=== PATIENT | male | born 1955 | race Caucasian/White ===

== ENCOUNTER 2022-06-26 09:03 | Emergency (ER) | payer MEDICARE, SELFPAY ==
[2022-06-26] VITALS (36 sets, daily range): BP systolic 95–157; BP diastolic 58–82; PULSE 90–103; RESP 16–18; TEMP 36.3–36.7; O2SAT 90–98
--- NOTE | ~2022-06-26 | XR_ITS ---
Portable chest x-ray Comparison: None Clinical History: Weakness Findings: Calcified right basilar granuloma noted. Lungs are otherwise clear. No pleural effusion or pneumothorax. Cardiomediastinal silhouette is unremarkable. Bones and soft tissues are unremarkable . Impression: No significant abnormality seen. Reviewed, dictated and finalized at [facility]. [facility] [employer]NALS Impression: No significant abnormality seen.
--- NOTE | ~2022-06-26 | XR_ITS ---
AP views of the pelvis and proximal femora Clinical history: Multiple falls Findings: No acute fracture identified. Bilateral hip arthroplasties are present. Suspected osteolysi s in the right supra-acetabular region. SI joints are probably unremarkable. Soft tissues are unremar kable. Impression: No acute fracture evident. Bilateral hip arthroplasties, with possible relative osteolysis in the right supra-acetabular region. Reviewed, dictated and finalized at location [facility]. [facility] PROGRAM COORDINATOR Impression: No acute fracture evident. Bilateral hip arthroplasties, with possible relative osteolysis in the right helm pra-acetabular region.
--- NOTE | 2022-06-26 09:34 | ED.GENADULT ---
HPI - General Adult General Chief complaint: Weakness Stated complaint: ambulance Time Seen by Provider: 06/26/22 09:21 History of Present Illness HPI narrative: This is a 67-year-old male with a history of CVA (w/ Left sided weakness) and recent elbow fracture presenting to the ED with nausea/vomiting and frequent falls. Patient had a fall on Wednesday that resulted in a fractured elbow. This was treated @ [facility] and he was eventually discharged in a sling with orthopedic clinic follow-up. Workup included Ct head, C-spine, Wrist, elbow, and shoulder Xrs. Since then the patient has had 2 episodes of nausea/vomiting both immediately after taking Mabie and is likely a medication side effect. This morning he had another fall. He was walking with a walker back from the bathroom after vomiting and his left leg got tangled carpet, as he turned his right leg gave out and he put his arm on the wall and slid to the floor. there was no head trauma or loss of consciousness. He did not sustain any injury at that time. At this time the patient has no complaints. He says that the pain in his left elbow has been controlled with his home tramadol. His family is concerned because no lab work was ordered at the previous hospital and had like to make sure there is not a cause for the patient's frequent falls. His family believes that he has been more weak than usual. Related Data Home Medications Medication Instructions Recorded Confirmed acetaminophen 500 mg tablet 500 mg PO Q6H PRN Pain 06/26/22 06/26/22 (Acetaminophen Extra Strength) aspirin 81 mg tablet,delayed 81 mg PO DAILY 06/26/22 06/26/22 release atorvastatin 80 mg tablet 80 mg PO HS 06/26/22 06/26/22 cholecalciferol (vitamin D3) 50 50 mcg PO DAILY 06/26/22 06/26/22 mcg (2,000 unit) capsule clopidogrel 75 mg tablet 75 mg PO DAILY 06/26/22 06/26/22 famotidine 20 mg tablet 20 mg PO DAILY 06/26/22 06/26/22 fluticasone propionate 50 2 spray intranasal DAILY 06/26/22 06/26/22 mcg/actuation nasal spray,suspension furosemide 40 mg tablet 40 mg PO DAILY 06/26/22 06/26/22 glucagon 1 mg/0.2 mL subcutaneous 1 mg subcut PRN PRN Hypoglycemia 06/26/22 06/26/22 solution (Gvoke) hydralazine 25 mg tablet 25 mg PO TID 06/26/22 06/26/22 hydrocodone 5 mg-acetaminophen 325 1 tablet PO DIRECTED PRN Pain 06/26/22 06/26/22 mg tablet icosapent ethyl 1 gram capsule 2 g PO BID 06/26/22 06/26/22 (Vascepa) insulin aspart U-100 100 unit/mL See Rx Instructions .Route .COMPLEX 06/26/22 06/26/22 (3 mL) subcutaneous pen (Novolog FlexPen U-100 Insulin aspart) insulin glargine 100 unit/mL (3 45 unit subcut HS 06/26/22 06/26/22 mL) subcutaneous pen (Basaglar KwikPen U-100 Insulin) isosorbide dinitrate 5 mg tablet 5 mg PO BID 06/26/22 06/26/22 metoprolol succinate 50 mg 50 mg PO DAILY 06/26/22 06/26/22 tablet,extended release 24 hr sennosides 8.6 mg tablet (senna) 8.6 mg PO DAILY 06/26/22 06/26/22 tamsulosin 0.4 mg capsule 0.4 mg PO DAILY 06/26/22 06/26/22 tramadol 50 mg tablet 50 mg PO TID PRN Pain 06/26/22 06/26/22 Allergies Allergy/AdvReac Type Severity Reaction Status Date / Time No Known Allergies Allergy Verified 06/26/22 09:18 Review of Systems Review of Systems: CONSTITUTIONAL: Denies night sweats. EYES: No eye pain ENT: Denies rhinorrhea CARDIOVASCULAR: Denies palpitations RESPIRATORY: Denies hemoptysis GASTROINTESTINAL: Denies hematemesis GENITOURINARY: Denies hematuria. SKIN: Denies rash MUSCULOSKELETAL: Denies myalgia. NEUROLOGIC: Denies weakness. PSYCHIATRIC: Denies delusions PMFSH Past Medical History Medical History (Updated 06/26/22 @ 13:49 by Freddy Llanes MD) Aortic stenosis CAD (coronary artery disease) CVA (cerebral vascular accident) Diabetes Heart failure High cholesterol HTN (hypertension) Surgical History Surgical History (Updated 06/26/22 @ 11:30 by Freddy Llanes MD) H/O bilateral hip replacements
[2022-06-26] MEDS: ACETAMINOPHEN 500 MG TABLET 1000 MG PO (09:57)
[2022-06-26] MEDS: ONDANSETRON HCL ODT 4 MG TABLET PO (09:57)
--- NOTE | 2022-06-26 09:58 | ECG_ITS ---
Measurements Intervals [place] Rate: 95 P: 27 ID: [id number] QRS: 5 QRSD: 97 T: -76 QT: 335 QTc: 423 Interpretive Statements SINUS RHYTHM LEFT VENTRICULAR HYPERTROPHY WITH ST-T CHANGE INFERIOR INFARCT, AGE INDETERMINATE ST-T WAVE ABNORMALITY IN LATERAL LEADS- CONSIDER ISCHEMIA BASELINE ARTIFACT- I, II, AVR ABNORMAL ECG NO PREVIOUS ECG AVAILABLE FOR COMPARISON Electronically Signed On 06-26-2022 10:25:42 CAN INSPECTOR by Tee Montez D.O.
[2022-06-26 10:06] LABS: Glucose Point of Care 187 mg/dl (65-105)
--- NOTE | 2022-06-26 10:19 | PC.NURSE ---
PT HAS BEEN MEDICATED, URINE SPECIMEN OBTAINED PER STRAIGHT CATH AND PT TOLERATED WELL, REPOSITIONED, EXTRA PILLOW UNDER LEFT ARM FOR COMFORT, PLACED ON MONITOR, NASAL SWAB OBTAINED, AND LAB, RESP AT BEDSIDE AT THIS TIME. SISTER AT BEDSIDE. PT DENIES ANY OTHER NEEDS OR COMPLAINTS AT PRESENT. WILL CONTINUE TO MONITOR. NAD NOTED. OLD BRUISING NOTED TO LOWER ABD, REPORTS INSULIN INJECTIONS.
[2022-06-26 10:28] LABS: Basophils Absolute Auto 0.04 K/mm3 (0.00-0.10); Basophils Percent Auto 0.3 % (0.0-1.0); Eosinophils Absolute Auto 0.05 K/mm3 (0.02-0.50); Eosinophils Percent Auto 0.4 % (1.0-6.0); Hematocrit 29.2 % (37.0-46.0); Hemoglobin 10.1 g/dL (12.4-15.3); Immature Granulocyte Absolute 0.08 K/mm3 (0.00-0.00); Immature Granulocyte Percent A 0.6 % (0.0-0.0); Lymphocytes Percent Auto 7.8 % (18.0-42.0); Mean Corpuscular HGB Conc 34.6 g/dL (32.0-36.0); Mean Corpuscular Hemoglobin 35.2 pg (27.0-31.0); Mean Corpuscular Volume 101.7 fL (78.0-102.0); Mean Platelet Volume 9.1 fl (8.7-11.0); Monocytes Absolute Auto 0.54 K/mm3 (0.10-0.90); Monocytes Percent Auto 4.2 % (2.0-11.0); Neutrophils Absolute Auto 11.1 K/mm3 (1.7-7.2); Neutrophils Percent Auto 86.7 % (50.0-70.0); Platelet Count Result 197 K/mm3 (150-420); Red Blood Count 2.87 M/mm3 (4.70-6.10); Red Cell Distribution Width 12.4 % (11.6-14.4); White Blood Count 12.8 K/mm3 (4.8-10.8)
[2022-06-26 10:29] LABS: Add Urine Microscopic? YES; Appearance Urine Clear (Clear); Bilirubin Urine Negative (Negative); Blood Urine Negative (Negative); Color Urine Light Yellow (Yellow); Glucose Urine UA Trace (Negative); Ketones Urine Negative (Negative); Leukocyte Esterase Ur Negative LEU/UL (Negative); Nitrate Urine Negative (Negative); Protein Urine 2+ (Negative); Specific Grav Ur >= 1.030 (1.010-1.020); Urobilinogen Urine 0.2 mg/dL (0.2-1.0); pH Urine 5.5 (5.0-8.0)
[2022-06-26 10:38] LABS: Bacteria Urine None seen /hpf; RBC Urine 0-2 /hpf (0-2); Squamous Epithelial Cell Urine Rare /hpf (Few); WBC Urine 0-3 /hpf (0-3)
[2022-06-26 10:55] LABS: Alanine Aminotransferase 21 U/L (16-63); Albumin Level 3.4 g/dL (3.4-5.0); Alkaline Phosphatase 93 U/L (46-116); Anion Gap 8 mmol/L (8-16); Aspartate Amino Transferase < 10 U/L (15-37); Bilirubin,Total 0.5 mg/dL (0.00-1.00); Blood Urea Nitrogen 51 mg/dL (7-18); Carbon Dioxide 27 mmol/L (21-32); Chloride 101 mmol/L (98-108); Estimated CRCL calculation 34 ml/min; Estimated Glomerular Filt Rate 23; Glucose 206 mg/dL (70-99); Lipase 26 U/L (16-77); Magnesium 2.1 mg/dL (1.8-2.4); Osmolality Calculated 301 mOsm/kg (285-295); Potassium 5.4 mmol/L (3.5-5.1); Sodium 136 mmol/L (136-145); Total Protein 7.3 g/dL (6.4-8.2)
[2022-06-26 10:55] LABS: NT Pro B Type Natriuretic Pept 350 pg/mL (0-125)
[2022-06-26 10:58] LABS: Calcium 8.7 mg/dL (8.5-10.1)
[2022-06-26 11:05] LABS: Influenza A QL RT-PCR Negative (Negative); Influenza B QL RT-PCR Negative (Negative); SARS-CoV-2 RNA PCR Negative (Negative)
[2022-06-26 11:06] LABS: RSV RNA, RT-PCR Negative (Negative)
--- NOTE | 2022-06-26 11:22 | PC.NURSE ---
ERP AT BEDSIDE, SISTER AT BEDSIDE. PT IS REPOSITIONED WITH PILLOW UNDER BUTTOCKS REQUESTED. 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 CALL PLACED TO [facility] ER, REPORTING THE ONLY NEPHROLOGISTS ON STAFF ARE LORENZA CHEUNG MALIK, BENTLEY, AND DR MACKEY. NON OF WHICH THE SISTER REPORTS ARE WHO THEY SAW. CALL PLACED TO [facility] TRANSFER LINE AT THIS TIME.
[2022-06-26] MEDS: SODIUM ZIRCONIUM CYCLOSILICATE 5 GM POWD.PACK PO (11:38)
[2022-06-26] MEDS: INSULIN HUMAN REGULAR (*BKC) 100 UNITS/ML 10 UNITS IV PUSH (11:41)
[2022-06-26] MEDS: DEXTROSE 50% 25 GM/50 ML SYRINGE IV PUSH (11:43)
[2022-06-26] MEDS: SODIUM CHLORIDE 0.9% IV 1,000 ML 999 ML IV CONT ×2 (11:57→13:15)
[2022-06-26 12:55] LABS: Glucose Point of Care 202 mg/dl (65-105)
--- NOTE | 2022-06-26 13:03 | PC.NURSE ---
[facility] CALLS, PT IS ON WAIT LIST FOR [facility] AT THIS TIME, TRIAGE INFORMATION IS PROVIDED. PER TRANSFER CENTER NO BEDS AVAILABLE, PROBABLY NOT UNTIL OVER THE WEEKEND SOMETIME. PT IS REPOSITIONED AGAIN, IVF ARE INFUSING, IV SITE WAS POSITIONAL, INFUSING WITHOUT DIFFICULTY AT THIS TIME. VSS PER MONITOR. NAD NOTED. WILL CONTINUE TO MONITOR.
[2022-06-26 13:52] LABS: Anion Gap 8 mmol/L (8-16); Blood Urea Nitrogen 51 mg/dL (7-18); Carbon Dioxide 25 mmol/L (21-32); Chloride 102 mmol/L (98-108); Estimated CRCL calculation 38 ml/min; Estimated Glomerular Filt Rate 26; Glucose 209 mg/dL (70-99); Osmolality Calculated 299 mOsm/kg (285-295); Potassium 4.8 mmol/L (3.5-5.1); Sodium 135 mmol/L (136-145)
--- NOTE | 2022-06-26 14:14 | PC.NURSE ---
PT WAS ACCEPTED TO [facility] ROOM 2632, PT AND SISTER AGREEABLE WITH TRANSFER. NAD NOTED. IVF INFUSING ORDERED WITHOUT DIFFICULTY. REPORT CALLED TO ARNOLD MILES AT [facility]. BELONGINGS LIST COMPLETED, RADIOLOGY DISC SENT WITH PT.
== END 2022-06-26 14:55 | disposition short-term general hospital (02) ==
PROVIDERS: Emergency Provider Emergency Medicine; PCP Hospitalist
DX: N17.9 Acute kidney failure, unspecified (principal); R53.1 Weakness; I69.359 Hemiplegia and hemiparesis following cerebral infarction affecting unspecified side; R29.6 Repeated falls; W01.0XXA Fall on same level from slipping, tripping and stumbling without subsequent striking against object, initial encounter; I25.10 Atherosclerotic heart disease of native coronary artery without angina pectoris; I11.0 Hypertensive heart disease with heart failure; I50.9 Heart failure, unspecified; E78.00 Pure hypercholesterolemia, unspecified; E11.9 Type 2 diabetes mellitus without complications; Z96.643 Presence of artificial hip joint, bilateral; Z79.82 Long term (current) use of aspirin; Z79.02 Long term (current) use of antithrombotics/antiplatelets; Z79.4 Long term (current) use of insulin; Z20.822 Contact with and (suspected) exposure to COVID-19
CPT/HCPCS: 36415; 51701; 71045; 72170; 80048; 80053; 81001; 82948; 83690; 83735; 83880; 85025; 87637; 93005; 96361; 96374; 96375; 99285; A9270; J1815; J7030